=== PATIENT | male | born 1960 | race Caucasian/White ===

== ENCOUNTER → 2023-06-02 | Outpatient (CLI) | payer OTHER ==
[~2023-06-02] MED LIST: REGADENOSON 0.4 MG/5 ML SYRINGE IV ONE
--- NOTE | 2023-06-02 11:13 | CA ---
Lexiscan Nuclear Stress Test Report Name: Lalito Pate Exam Date: 06/02/2023 10:01 Exam Location: [place] [facility] Ht (in): 68 Wt (lb): 175 BSA: 1.93 Ordering Phys: Antonieta Bright DO Referring Phys: Jennifer Driver [facility] Technologist: Terence Shafer Age: 62 Gender: M : 1960 Procedure CPT: Indications: I20.9 Angina ICD-10 Codes: Patient History: DIFFICULTY IN BREATHING, ANGINA, HTN, ELEVATED CHOLESTEROL LEVELS, FAMILY HX OF HEART DISEASE, CURRENT SMOKER 1 PPD X 30 YEARS, CARDIAC CATH WITH TWO STENTS, ASTHMA Medications: Meds past 24 hrs: Pretest Chest Pain: STRESS TEST Lexiscan Protocol Exercise Duration (min:sec): 01:[address] Depressions (mm): Angina Score: Marie Score: Resting HR (bpm): 64 Peak HR (bpm): 91 Resting BP (mmHg): 149 / 89 Peak BP (mmHg): 173 / 99 MPHR: 160 Target HR: 136 % MPHR: 57 METS: 1.0 Total Dose: Peak Dose: Atropine: Double Product: 86643 BP Response: Stress Termination: INFUSION COMPLETE Stress Symptoms: DIFFICULTY IN BREATHING Stress Summary: ECG ANALYSIS Resting ECG: Normal sinus rhythm normal lites normal intervals Stress ECG: Patient was given intravenous Lexiscan as a protocol did not have chest pain or diagnostic ST segment depression CONCLUSIONS Negative stress test by EKG criteria Cardiolite portion of the stress test will be reported separately Dr. Bib Salinas MD (Electronically Signed) Final Date: 02 June 2023 11:12
--- NOTE | 2023-06-02 11:24 | NM ---
EXAMINATION TYPE: NM stress lexiscan cardiolite DATE OF EXAM: 06/02/2023 COMPARISON: NONE CLINICAL INDICATION: Male, 62 years old with history of I20.9 ANGINA PECTORIS, UNSPECIFIED I25.9; I27 .9; TECHNIQUE: After the intravenous administration of 9.0 mCi Tc 99m Sestamibi - Cardiolite resting SPE CT images acquired 45 minutes post injection. The patient received 0.4mg Lexiscan, 25.4 mCi Tc 99m Sestamibi - Stress images obtained [address] injection FINDINGS: Review of stress and rest SPECT images demonstrates no distinct personable perfusion abnormality. Sma ll fixed apical defect. Gated analysis shows normal wall motion with an estimated left ventricular ej ection fraction of 60 %. IMPRESSION: No scintigraphic evidence for reversible ischemia. Small fixed apical defect could be artifactual or related to remote tiny area of ischemia.
--- NOTE | 2023-06-02 12:06 | CA ---
Transthoracic Echo Report Name: Lalito Pate Age: 62 Gender: M : 1960 Exam Date: 06/02/2023 08:33 Exam Location: [place] Echo Ht (in): 68 Wt (lb): 175 Ordering Physician: Antonieta Bright DO Attending/Referring Phys: Jennifer Driver [facility] [employer]pper Apprentice Isela Flower [facility] Procedure CPT: Indications: I20.9 ANGINA PECTORIS, UNSPECIFIED I25.9; I27.9 Cardiac Hx: Technical Quality: Fair Contrast 1: Total Dose (mL): Contrast 2: Total Dose (mL): MEASUREMENTS (Male / Female) Normal Values 2D ECHO LV Diastolic Diameter PLAX 4.7 cm 4.2 - 5.9 / 3.9 - 5.3 cm LV Systolic Diameter PLAX 3.7 cm IVS Diastolic Thickness 0.8 cm 0.6 - 1.0 / 0.6 - 0.9 cm LVPW Diastolic Thickness 0.8 cm 0.6 - 1.0 / 0.6 - 0.9 cm LV Relative Wall Thickness 0.3 Ascending Aorta Diameter 2.8 cm M-MODE Aortic Root Diameter MM 2.4 cm LA Systolic Diameter MM 3.4 cm LA Ao Ratio MM 1.4 AV Cusp Separation MM 2.2 cm DOPPLER AV Peak Velocity 113.8 cm/s AV Peak Gradient 5.2 mmHg AV Mean Velocity 83.3 cm/s AV Mean Gradient 3.1 mmHg AV Velocity Time Integral 22.8 cm LVOT Peak Velocity 103.1 cm/s LVOT Peak Gradient 4.3 mmHg LVOT Velocity Time Integral 21.1 cm Mitral E Point Velocity 69.2 cm/s Mitral A Point Velocity 72.1 cm/s Mitral E to A Ratio 1.0 MV Deceleration Time 171.1 ms LV E' Lateral Velocity 11.1 cm/s Mitral E to LV E' Lateral Ratio 6.3 LV E' Septal Velocity 8.3 cm/s Mitral E to LV E' Septal Ratio 8.3 Right Atrial Pressure 3.0 mmHg FINDINGS Left Ventricle Left ventricular cavity size normal. Left ventricular wall thickness normal. Left ventricular ejection fraction is estimated at 50-55%. Low normal left ventricular systolic function with no obvious regional wall motion abnormalities. Right Ventricle Mild right ventricular dilatation. Unable to estimate the right ventricular systolic pressure. Right Atrium Normal right atrial size. Left Atrium Normal left atrial size. Mitral Valve Structurally normal mitral valve. No mitral regurgitation. Aortic Valve Trileaflet aortic valve. No aortic valve stenosis or regurgitation. Tricuspid Valve Structurally normal tricuspid valve. No tricuspid regurgitation. Pulmonic Valve Pulmonic valve not well visualized. No pulmonic regurgitation. Pericardium No pericardial effusion. Echo free space anterior to the right ventricle likely represents a fat pad. Aorta Normal size aortic root and proximal ascending aorta. CONCLUSIONS Normal LV function Previewed by: Dr. Bib Salinas MD (Electronically Signed) Final Date: 02 June 2023 12:05
== END | disposition home or self-care (01) ==
LOC: RADNMMAIN 08:23
PROVIDERS: ATTEND Family Medicine
DX: I20.9 Angina pectoris, unspecified (principal); I25.9 Chronic ischemic heart disease, unspecified; I27.9 Pulmonary heart disease, unspecified
CPT/HCPCS: 93017; 93306; 78452; A9500